=== PATIENT | male | born 1955 | race Caucasian/White ===

== ENCOUNTER → 2016-06-16 | Outpatient (CLI) | payer OTHER | LOC: BMCIMAGING 11:41 | PROVIDERS: ATTEND Family Medicine | DX: M79.671 Pain in right foot (principal) ==

== ENCOUNTER → 2017-09-28 | Outpatient (CLI) | payer OTHER | LOC: BMCIMAGING 11:52 | PROVIDERS: ATTEND Orthopaedic Surgery Hand Surgery | DX: M19.042 Primary osteoarthritis, left hand (principal) ==

== ENCOUNTER 2018-02-14 12:03 | Emergency (ER) | payer OTHER ==
--- NOTE | 2018-02-14 13:43 | EDPHY ---
H & P Time Seen by Provider: 02/14/18 13:23 HPI/ROS: CHIEF COMPLAINT: Concerns about recent finger lacerations HISTORY OF PRESENT ILLNESS: 62-year-old male presents to the emergency department 6 days after having repair of finger tip lacerations of the 3rd and 4th digits of his left hand. Patient cut the tips of his finger on a table saw. He was seen initially in the emergency department 6 days ago. At that time lacerations were repaired the patient was placed on Keflex. He now was concerned because he continues to have significant discomfort at the tips of his fingers as well as significant pallor. No fevers or chills. No new injuries. Patient has been soaking the finger tips in dilute hydrogen peroxide. REVIEW OF SYSTEMS: A comprehensive 10 system review of systems was reviewed and is otherwise negative aside from elements mentioned in the history of present illness and medical decision making. PAST MEDICAL HISTORY: Bipolar disorder. SOCIAL HISTORY: [employer] build. GENERAL APPEARANCE: Pleasant, well-developed, well-nourished.. FOCUSED EXAM OF left hand: 3rd digit: On the distal phalanx there is a laceration measuring total of 2.5 cm. This is been repaired. Slight pallor at the distal tip. Good capillary refill. Distal phalanx is very slightly swollen. 4th digit: Laceration totaling 2 cm any flap like pattern across the distal tip. Swelling of the distal tip. The flap itself is pale. Very mild erythema present over the distal phalanx. No purulence noted along the suture lines. No nail bed involvement. Smoking Status: Never smoked Constitutional: Initial Vital Signs Temperature (C) 36.9 C 02/14/18 12:14 Heart Rate 65 02/14/18 12:14 Respiratory Rate 18 02/14/18 12:14 Blood Pressure 113/65 02/14/18 12:14 O2 Sat (%) 99 02/14/18 12:14 O2 Delivery Mode Room Air Allergies/Adverse Reactions: iodine [Iodine] Allergy (Intermediate, Verified 02/14/18 12:14) Hives codeine Allergy (Verified 02/14/18 12:14) Vomiting SEASONAL Allergy (Mild, Uncoded 02/14/18 12:14) Other-Enter Comments Home Medications: Medication Instructions Recorded Albuterol [Proventil Inhaler (RX)] 1 - 2 puffs IH Q4 PRN 02/04/12 Cyanocobalamin/Folic AC/Vit B6 [B 1 each PO Q2EVEN 02/04/12 Complex-Folic Acid Tablet] Herbals/Supplements -Info Only 1 each PO AD 02/04/12 Ibuprofen [Advil] 200 mg PO Q4 PRN 02/04/12 [place]-3 Fatty Acids [Fish Oil 1000 1,000 mg PO DAILY 02/04/12 mg (OTC)] Aspirin [Aspirin 81mg (OTC)] 81 mg PO DAILY 02/11/12 Ascorbic Acid [Vitamin C 500 mg 500 mg PO BID 02/18/12 (OTC)] Cholecalciferol Vit D3 [Vitamin D3 2,000 units PO DAILY 02/18/12 2000 units (OTC)] Glucosamine/MSM/[place]ond[place] Sulf 1 each PO HS 02/18/12 [[id number] Tab] Cephalexin [Keflex] 500 mg PO TID 5 Days cap 02/08/18 LaMICtal 02/08/18 [place] Carbonate 600 mg cap (*) 02/08/18 Seroquel 02/08/18 Cephalexin [Keflex (RX)] 500 mg PO QID 5 Days cap 02/14/18 Hydrocodone/APAP 5/325 [[place] 1 tab PO Q6H PRN #6 tab 02/14/18 5/325 (RX)] MDM/Departure - MDM ED Course/Re-evaluation: Suture lines were cleaned with hydrogen peroxide and water. 3 sutures were removed from the suture line on the 4th digit. Patient was given an additional 5 days of Keflex. I did have a long discussion with the patient concerning the nature of flap lacerations and the fact that the skin at the distal tip of the flap has a compromised blood supply and the flap may fail. Patient understands that in this circumstance he will have scar tissue which may form across the tip of that finger. He is aware that this is a possibility. In order to provide improved perfusion of those distal fingers, we have removed several sutures. Patient will follow up as needed. Fingers were also placed in an aluminum splint to help with discomfort and swelling. Differential Diagnosis: Differential diagnoses for the patient's symptom complex was considered including but not limited to suture line infection, cellulitis, abscess, nonviable tissue. - Depart Disposition: Home, Routine, Self-Care Clinical Impression: Finger laceration Qualifiers: Encounter type: subsequent encounter Finger: middle finger Damage to nail status: without damage Foreign body presence: without foreign body Laterality: left Qualified Code(s): S61.213D - Laceration without foreign body of left middle finger without damage to nail, subsequent encounter Finger laceration with complication Qualifiers: Encounter type: initial encounter Qualified Code(s): S61.219A - Laceration without foreign body of unspecified finger without damage to nail, initial encounter Condition: Good Instructions: Finger Laceration (ED) Additional Instructions: Please follow up for suture removal as previously directed. Please use ibuprofen 600 mg every 6-8 hours for pain and inflammation. You may also use Tylenol 650-1000 mg every 4-6 hours for additional pain. You been given a prescription of [place]. This is combination of hydrocodone and Tylenol. You may take this as needed for severe pain especially when sleeping. I have given you a prescription for an additional 5 days of antibiotics. Keflex 500 mg by mouth 4 times a day. Please keep the fingers dressed and in a splint for the next 24-36 hr. After this, please clean the suture line with a little hygiene peroxide and water. Apply antibiotic cream to the tips of the fingers. Bandage as needed. Prescriptions: Cephalexin [Keflex (RX)] 500 mg PO QID 5 Days cap Hydrocodone/APAP 5/325 [[place] 5/325 (RX)] 1 tab PO Q6H PRN #6 tab PRN Reason: Pain Referrals: Carmelina Adame MD [Primary Care Provider] - As per Instructions
[2018-02-14 14:38] VITALS: BP 110/60
== END 2018-02-14 14:37 | disposition home or self-care (01) ==
DX: S61.213D Laceration without foreign body of left middle finger without damage to nail, subsequent encounter (principal); S61.215D Laceration without foreign body of left ring finger without damage to nail, subsequent encounter; W31.2XXD Contact with powered woodworking and forming machines, subsequent encounter